=== PATIENT | male | born 1960 | race African-American/Black ===

== ENCOUNTER 2019-02-20 19:39 | Emergency (ER) | payer OTHER ==
[2019-02-20 21:05] LABS: Absolute Lymphocytes (CBC) 0.3 K/uL (0.7-4.9); Basophils % 0.4 % (0-1.3); Eosinophils % 0.2 % (0-4.4); Hematocrit 26.3 % (39.6-49.0); Lymphocytes % 5.4 % (15.3-44.8); MPV 7.2 fL (7.6-11.3); Monocytes % 9.5 % (3.3-12.3); RBC Red Blood Cell Count 2.84 M/uL (4.33-5.43)
[2019-02-20] MEDS ORDERED: NA CHLORIDE 0.9% 1,000 ML ONE ×2 (21:15→23:11)
[2019-02-20] MEDS ORDERED: TETANUS & DIPHTHERIA TOX,ADULT 0.5 ML VIAL ONE (21:15)
[2019-02-20 21:22] LABS: Protime INR 1.13
[2019-02-20 21:35] LABS: ALT/SGPT 14 U/L (12-78); AST/SGOT 9 U/L (15-37); Alkaline Phosphatase 51 U/L (45-117); BUN Blood Urea Nitrogen 103 mg/dL (7-18); Bicarbonate 15 mmol/L (21-32); Bilirubin Direct 0.1 mg/dL (0-0.2); Bilirubin Total 0.5 mg/dL (0.2-1.0); Creatine Phosphokinase 222 U/L (39-308); Glucose Level 98 mg/dL (74-106); Lipase 1091 U/L (73-393); Protein, Total 8.9 g/dL (6.4-8.2); Sodium Level 134 mmol/L (136-145); Troponin (Emerg Dept Use Only) < 0.02 ng/mL (0.0-0.045)
[2019-02-20 21:39] LABS: Potassium 2.9 mmol/L (3.5-5.1)
--- NOTE | 2019-02-20 22:09 | RAD REPORT ---
EXAM DESCRIPTION: Efren Single View02/20/2019 8:54 pm CLINICAL HISTORY: Chest pain COMPARISON: none FINDINGS: The lungs appear clear of acute infiltrate. The cardiac silhouette is moderately enlarged which may represent cardiomegaly/pericardial effusion
[2019-02-20] MEDS ORDERED: CEFTRIAXONE/SWI 1gm 1 GM/10 ML SYR ONE (22:16)
[2019-02-20 22:33] LABS: Blood Morphology Comment NOTED (NOT SEEN); Platelet Estimate ADEQ
[2019-02-20 22:34] LABS: Burr Cells 3+
[2019-02-20 22:40] LABS: Urine Blood 2+ (NEG); Urine Glucose NEGATIVE (NEG); Urine Protein 2+ (NEG); Urine Specific Gravity 1.015 (1.005-1.030); Urine pH 5.5 (5.0-7.0)
--- NOTE | 2019-02-20 22:40 | ER ---
Nurse's Notes [facility] Name: Speedy Paul Age: 58 yrs Sex: Male : 1960 Arrival Date: 02/20/2019 Time: 19:48 Bed 19 Private MD: Diagnosis: Multiple fractures of ribs;Fracture of sternum;Unspecified kidney failure Presentation: 02/20 20:20 Presenting complaint: stated by niece, patient is feeling weak, dizzy, having , rr5 cannot walk on his own, episode of disorientation. he has a history of fall busted his head and lips. the tube on his left kidney (inserted in [place]) supposed to drain the kidney stone but I think its clogged and infected. 20:20 Transition of care: patient was not received from another setting of care. Onset of rr5 symptoms was January 2019. Risk Assessment: Do you want to hurt yourself or someone else? Patient reports no desire to harm self or others. Initial Sepsis Screen: Does the patient meet any 2 criteria? No. Patient's initial sepsis screen is negative. Does the patient have a suspected source of infection? Yes: Other: suspected infection on the left flank kidney tube. Care prior to arrival: None. 20:20 Method Of Arrival: Wheelchair rr5 20:20 Acuity: CLYDE 3 rr5 Triage Assessment: 20:20 General: Appears in no apparent distress. uncomfortable, Behavior is calm, cooperative, rr5 appropriate for age. 20:20 General: Appears ill, unkempt, Behavior is. rr5 Historical: - Allergies: 20:20 No Known Allergies; rr5 - Home Meds: 20:20 None [Active]; rr5 - PMHx: 20:20 Thyroid problem; Kidney stones; rr5 - PSHx: 20:20 tube insertion in left kidney to drain stones; rr5 - Immunization history:: Adult Immunizations unknown. - Social history:: Smoking status: Patient/guardian denies using tobacco, Patient uses alcohol, occasionally. street drugs, marijuana. - Ebola Screening: : Patient negative for fever greater than or equal to 101.5 degrees Fahrenheit, and additional compatible Ebola Virus Disease symptoms Patient denies exposure to infectious person Patient denies travel to an Ebola-affected area in the 21 days before illness onset. Screenin:00 Abuse screen: Denies threats or abuse. Denies injuries from another. Nutritional rr5 screening: No deficits noted. Tuberculosis screening: No symptoms or risk factors identified. Fall Risk Fall in past 12 months (25 points). IV access (20 points). Ambulatory Aid- None/Bed Rest/Nurse Assist (0 pts). Gait- Weak (10 pts.). Mental Status- Oriented to own ability (0 pts). Total Ortiz Fall Scale indicates High Risk Score (45 or more points). Fall prevention measures have been instituted. Side Rails Up X 2 Placed Close to Nursing Station Frequent Obs/Assessments Occuring Family Present and informed to notify staff if the need to leave the bedside As available patient and family educated on Fall Prevention Program and Strategies. Assessment: 20:20 General: Appears uncomfortable, ill, unkempt, Behavior is calm, cooperative, rr5 appropriate for age. 20:20 Pain: Complains of pain in chest Pain does not radiate. Pain currently is 8 out of 10 rr5 on a pain scale. Quality of pain is described as aching, Pain began suddenly, Is intermittent. Neuro: Level of Consciousness is awake, alert, obeys commands, Oriented to person, place, time, situation, Appropriate for age Lace Machine Operator are equal bilaterally Weakness Gait is unsteady, Speech is slurred, Facial symmetry appears normal, Pupils are PERRLA, Reports dizziness, weakness as per niece episode of disorientation.. Cardiovascular: Reports chest pain, Capillary refill < 3 seconds Patient's skin is warm and dry. Respiratory: Reports pain with respiration Airway is patent Respiratory effort is even, unlabored, Respiratory pattern is regular, symmetrical. GI: No signs and/or symptoms were reported involving the gastrointestinal system. : Parent/caregiver report the patient having has a left nephrostomy tube connected to drain bag that looks clogged and looks infected. EENT: cut wound lower lip dry.. Derm: Skin dry Skin temperature is warm Wound noted forehead Wound is dry cut wound at frontal area. Musculoskeletal: Capillary refill < 3 seconds, Reports weakness in right leg and left leg. 21:40 Reassessment: Patient appears in no apparent distress at this time. Patient is alert, rr5 oriented x 3, equal unlabored respirations, skin warm/dry/pink. awaiting for results. family member at bedside chatting with the patient. 22:30 Reassessment: complaining of chest pain. ED provider aware awaiting for orders. pain rr5 score of 8/10. 22:46 Reassessment: call made to [facility] staff nurse Maisha accepted the ccase. patient rr5 will go to 10B 1035. 23:45 Reassessment: Patient appears in no apparent distress at this time. Patient is alert, rr5 oriented x 3, equal unlabored respirations, skin warm/dry/pink. endorsed to [facility] awake conscious and coherent not in distress. vitally stable, with IV cannula G22 at right AC intact, G22 at left forearm with ongoing NS at 125 ml/hr infusing well. with nephrostomy tube left connected to drain bag, with Medeiros catheter to urine bag draining yellow cloudy urine. Patient states symptoms have not improved. 02/21 00:00 Reassessment: Patient appears in no apparent distress at this time. Patient is alert, rr5 oriented x 3, equal unlabored respirations, skin warm/dry/pink. [facility] take back the patient in room. needs to changed their truck. 00:25 Reassessment: financial secretary called for the EMS service. [facility] will come instead of rr5 [facility]. 01:00 Reassessment: Patient appears in no apparent distress at this time. Patient is alert, rr5 oriented x 3, equal unlabored respirations, skin warm/dry/pink. endorsed to [facility]. fentanyl stat dose given prior to transfer. vitally stable, breathing spontaneously at room air. with IV cannula at right AC G22 intact, IV cannula G22 at left forearm intact with NS infusing well at 125ml/hr. with nephrostomy tube left kidney connected to drain bag no drain noted. with Medeiros catheter to urine bag draining cloudy yellow urine drained 280ml. Vital Signs: 02/20 20:20 BP 155 / 74; Pulse 69; Resp 20; Temp 98.5; Pulse Ox 97% ; Weight 89.36 kg; Height 6 ft. rr5 4 in. (193.04 cm); 21:10 BP 141 / 70; Pulse 73; Resp 18; Pulse Ox 98% on R/A; Pain 8/10; rr5 22:20 BP 143 / 76; Pulse 71; Resp 19; Temp 98.4; Pulse Ox 99% on R/A; rr5 23:00 BP 133 / 89; Pulse 88; Resp 15; Pulse Ox 99% on R/A; rr5 23:30 BP 110 / 85; Pulse 81; Resp 18; Temp 98.3; Pulse Ox 99% ; rr5 02/21 00:00 BP 125 / 70; Pulse 70; Resp 18; Temp 98.5; Pulse Ox 100% on R/A; rr5 01:00 BP 121 / 65; Pulse 79; Resp 16; Temp 98.5; Pulse Ox 100% ; rr5 02/20 20:20 Body Mass Index 23.98 (89.36 kg, 193.04 cm) rr5 Marcell Coma Score: 02/20 20:20 Eye Response: spontaneous(4). Verbal Response: oriented(5). Motor Response: obeys rr5 commands(6). Total: 15. ED Course: 19:48 Patient arrived in ED. es 20:05 Isael Treadwell MD is Attending Physician. gs 20:20 Arm band placed on. rr5 20:21 Juvenal Jones, YAN is Primary Nurse. rr5 20:31 Triage completed. rr5 20:35 Initial lab(s) drawn, by me, sent to lab. First set of blood cultures drawn by me. jp3 Inserted saline lock: 22 gauge in right antecubital area, using aseptic technique. Blood collected. Patient maintains SpO2 saturation greater than 95% on room air. 20:47 Placed in gown. Bed in low position. Call light in reach. Side rails up X 1. Side rails jp3 up X2. Warm blanket given. Pulse ox on. NIBP on. 20:54 Chest Single View XRAY In Process Unspecified. EDMS 21:07 CT Head C Spine In Process Unspecified. EDMS 21:07 CT Chest Wo Con In Process Unspecified. EDMS 21:10 Inserted saline lock: 22 gauge in left forearm, using aseptic technique. Blood rr5 collected. 21:15 Second set of blood cultures drawn by ED staff. jp3 21:39 Notified ED physician of a critical lab result(s). potassium of 2.9 and Creatinine of bb 7.24. Dr Treadwell notified. 22:20 Medeiros cath inserted, using sterile technique, 16 Fr., by me, balloon inflated, urine rr5 specimen collected. returned cloudy urine. Patient tolerated well. 23:42 CT Stone Protocol In Process Unspecified. EDMS 23:52 No provider procedures requiring assistance completed. Patient transferred, IV remains rr5 in place. intact, No redness/swelling at site. Pressure dressing applied. Administered Medications: 21:05 Drug: Tetanus-Diphtheria Toxoid Adult 0.5 ml {Extrusion Machine Operator: Kivun Hadash. Exp: rr5 11/10/2020. Lot #: [id number]. } Route: IM; Site: right deltoid; 22:05 Follow up: Response: No adverse reaction rr5 21:10 Drug: NS 0.9% 1000 ml Route: IV; Rate: 1 bolus; Site: left forearm; rr5 22:50 Follow up: Response: No adverse reaction; IV Status: Completed infusion; IV Intake: rr5 1000ml 22:00 Drug: Rocephin - (cefTRIAXone) 1 grams Route: IVPB; Infused Over: 30 mins; Site: left rr5 forearm; 22:30 Follow up: Response: No adverse reaction; IV Status: Completed infusion; IV Intake: [id number] 23:20 Drug: NS 0.9% 1000 ml Route: IV; Rate: 125 ml/hr; Site: left forearm; rr5 02/21 01:10 Follow up: Response: No adverse reaction; IV Status: Infusion continued upon transfer rr5 02/20 23:29 Drug: fentaNYL (PF) 50 mcg Route: IVP; Site: left forearm; rr5 02/21 00:30 Follow up: Response: No adverse reaction rr5 00:00 Drug: fentaNYL (PF) 50 mcg Route: IVP; Site: left forearm; rr5 01:04 Follow up: given at 0100 not 0000H. rr5 01:10 Follow up: Response: Other; medication administered at transfer. rr5 Point of Care Testing: Blood Glucose: 02/20 21:17 Blood Glucose: 108 mg/dL; rr5 Ranges: Intake: 22:30 IV: 50ml; Total: 50ml. rr5 22:50 IV: 1000ml; Total: 1050ml. rr5 Output: 02/21 01:00 Urine: 280ml (Medeiros); Total: 280ml. rr5 Outcome: 02/20 22:39 ER care complete, transfer ordered by MD. miller 23:52 Transferred by ground EMS to [facility], Transfer form rr5 completed. 23:52 Condition: stable 23:52 Instructed on no drinking with medication. 02/21 01:15 Patient left the ED. rr5 Signatures: Dispatcher [employer] Aparna Paredes Brenda, RN RN Isael Gross MD MD gs Pisarski, Jacob jp3 Juvenal Jones RN RN rr5
--- NOTE | 2019-02-20 22:40 | EDPHYS ---
Physician Documentation [facility] Name: Speedy Paul Age: 58 yrs Sex: Male : 1960 Arrival Date: 02/20/2019 Time: 19:48 Bed 19 Private MD: ED Physician Isael Treadwell HPI: 02/21 00:59 This 58 yrs old Black Male presents to ER via Wheelchair with complaints of General gs Weakness, Falling. 00:59 Details of fall: The patient fell from an upright position, while walking. Onset: The gs symptoms/episode began/occurred 5 day(s) ago. Associated injuries: The patient sustained injury to the head, contusion, laceration, pain. Severity of symptoms: At their worst the symptoms were moderate, in the emergency department the symptoms are unchanged. The patient has experienced similar episodes in the past, several times. Historical: - Allergies: 02/20 20:20 No Known Allergies; rr5 - Home Meds: 20:20 None [Active]; rr5 - PMHx: 20:20 Thyroid problem; Kidney stones; rr5 - PSHx: 20:20 tube insertion in left kidney to drain stones; rr5 - Immunization history:: Adult Immunizations unknown. - Social history:: Smoking status: Patient/guardian denies using tobacco, Patient uses alcohol, occasionally. street drugs, marijuana. - Ebola Screening: : Patient negative for fever greater than or equal to 101.5 degrees Fahrenheit, and additional compatible Ebola Virus Disease symptoms Patient denies exposure to infectious person Patient denies travel to an Ebola-affected area in the 21 days before illness onset. ROS: 02/21 00:59 All other systems are negative. gs Exam: 00:59 Head/Face: Normocephalic, atraumatic. Eyes: Pupils equal round and reactive to light, gs extra-ocular motions intact. Lids and lashes normal. Conjunctiva and sclera are non-icteric and not injected. Cornea within normal limits. Periorbital areas with no swelling, redness, or edema. ENT: Nares patent. No nasal discharge, no septal abnormalities noted. Tympanic membranes are normal and external auditory canals are clear. Oropharynx with no redness, swelling, or masses, exudates, or evidence of obstruction, uvula midline. Mucous membranes moist. Neck: Trachea midline, no thyromegaly or masses palpated, and no cervical lymphadenopathy. Supple, full range of motion without nuchal rigidity, or vertebral point tenderness. No Meningismus. 00:59 Cardiovascular: Regular rate and rhythm with a normal S1 and S2. No gallops, murmurs, or rubs. Normal PMI, no JVD. No pulse deficits. Respiratory: Lungs have equal breath sounds bilaterally, clear to auscultation and percussion. No rales, rhonchi or wheezes noted. No increased work of breathing, no retractions or nasal flaring. Abdomen/GI: Soft, non-tender, with normal bowel sounds. No distension or tympany. No guarding or rebound. No evidence of tenderness throughout. Back: No spinal tenderness. No costovertebral tenderness. Full range of motion. Skin: Warm, dry with normal turgor. Normal color with no rashes, no lesions, and no evidence of cellulitis. MS/ Extremity: Pulses equal, no cyanosis. Neurovascular intact. Full, normal range of motion. Neuro: Awake and alert, GCS 15, oriented to person, place, time, and situation. Cranial nerves II-XII grossly intact. Motor strength 5/5 in all extremities. Sensory grossly intact. Cerebellar exam normal. Normal gait. 00:59 Constitutional: The patient appears alert, awake. 00:59 Head/face: Noted is contusion, that is superficial, of the top of head, a laceration(s), that is superficial, 3 cm(s), of the top of head. 00:59 Chest/axilla: Palpation: tenderness, that is moderate, of the anterior aspect of right upper chest and anterior aspect of left upper chest. Vital Signs: 02/20 20:20 BP 155 / 74; Pulse 69; Resp 20; Temp 98.5; Pulse Ox 97% ; Weight 89.36 kg; Height 6 ft. rr5 4 in. (193.04 cm); 21:10 BP 141 / 70; Pulse 73; Resp 18; Pulse Ox 98% on R/A; Pain 8/10; rr5 22:20 BP 143 / 76; Pulse 71; Resp 19; Temp 98.4; Pulse Ox 99% on R/A; rr5 23:00 BP 133 / 89; Pulse 88; Resp 15; Pulse Ox 99% on R/A; rr5 23:30 BP 110 / 85; Pulse 81; Resp 18; Temp 98.3; Pulse Ox 99% ; rr5 02/21 00:00 BP 125 / 70; Pulse 70; Resp 18; Temp 98.5; Pulse Ox 100% on R/A; rr5 01:00 BP 121 / 65; Pulse 79; Resp 16; Temp 98.5; Pulse Ox 100% ; rr5 02/20 20:20 Body Mass Index 23.98 (89.36 kg, 193.04 cm) rr5 [place] Coma Score: 02/20 20:20 Eye Response: spontaneous(4). Verbal Response: oriented(5). Motor Response: obeys rr5 commands(6). Total: 15. MDM: 20:16 Patient medically screened. 02/21 00:59 Differential diagnosis: closed head injury, contusion, fracture. Data reviewed: vital gs signs, nurses notes, lab test result(s), EKG, radiologic studies. Counseling: I had a detailed discussion with the patient and/or guardian regarding: the historical points, exam findings, and any diagnostic results supporting the discharge/admit diagnosis, the need to transfer to another facility. Response to treatment: the patient's symptoms have mildly improved after treatment. 02/20 20:19 Order name: Basic Metabolic Panel 02/20 20:19 Order name: Blood Culture Adult (2) 02/20 20:19 Order name: CBC with Diff 02/20 20:19 Order name: CPK; Complete Time: 21:53 02/20 20:19 Order name: Lactate; Complete Time: 21:53 02/20 20:19 Order name: LFT's; Complete Time: 21:53 02/20 20:19 Order name: Lipase; Complete Time: 21:53 02/20 20:19 Order name: Procalcitonin; Complete Time: 21:53 02/20 20:19 Order name: Protime (+inr); Complete Time: 21:53 02/20 20:19 Order name: Troponin (emerg Dept Use Only); Complete Time: 21:53 02/20 20:19 Order name: Urine Microscopic Only 02/20 20:21 Order name: Basic Metabolic Panel; Complete Time: 21:53 [facility] 02/20 20:22 Order name: Blood Culture [facility] 02/20 21:10 Order name: Manual Differential [facility] 02/20 20:19 Order name: Chest Single View XRAY 02/20 20:19 Order name: Accucheck; Complete Time: 21:51 02/20 20:19 Order name: Cardiac monitoring; Complete Time: 21:52 02/20 20:19 Order name: EKG - Nurse/Tech; Complete Time: 21:52 02/20 20:19 Order name: IV Saline Lock - Large Bore; Complete Time: 21:52 02/20 20:19 Order name: CT Head C Spine 02/20 20:19 Order name: CT Chest Wo Con 02/20 21:42 Order name: CT Stone Protocol 02/20 22:32 Order name: Urine Dipstick--Ancillary (enter results) [facility] 02/20 23:11 Order name: Urine Culture [facility] 02/20 20:19 Order name: Labs collected and sent; Complete Time: 21:52 02/20 20:19 Order name: O2 Per Protocol; Complete Time: 21:52 02/20 20:19 Order name: O2 Sat Monitoring; Complete Time: 21:52 02/20 20:19 Order name: Urine Dipstick-Ancillary (obtain specimen); Complete Time: 22:25 02/20 21:43 Order name: Mala; Complete Time: 22:24 gs Administered Medications: 02/20 21:05 Drug: Tetanus-Diphtheria Toxoid Adult 0.5 ml {Linux Architect: [employer]. Exp: rr5 11/10/2020. Lot #: [id number]. } Route: IM; Site: right deltoid; 22:05 Follow up: Response: No adverse reaction rr5 21:10 Drug: NS 0.9% 1000 ml Route: IV; Rate: 1 bolus; Site: left forearm; rr5 22:50 Follow up: Response: No adverse reaction; IV Status: Completed infusion; IV Intake: rr5 1000ml 22:00 Drug: Rocephin - (cefTRIAXone) 1 grams Route: IVPB; Infused Over: 30 mins; Site: left rr5 forearm; 22:30 Follow up: Response: No adverse reaction; IV Status: Completed infusion; IV Intake: [id number] 23:20 Drug: NS 0.9% 1000 ml Route: IV; Rate: 125 ml/hr; Site: left forearm; rr5 02/21 01:10 Follow up: Response: No adverse reaction; IV Status: Infusion continued upon transfer rr5 02/20 23:29 Drug: fentaNYL (PF) 50 mcg Route: IVP; Site: left forearm; rr5 02/21 00:30 Follow up: Response: No adverse reaction rr5 00:00 Drug: fentaNYL (PF) 50 mcg Route: IVP; Site: left forearm; rr5 01:04 Follow up: given at 0100 not 0000H. rr5 01:10 Follow up: Response: Other; medication administered at transfer. rr5 Point of Care Testing: Blood Glucose: 02/20 21:17 Blood Glucose: 108 mg/dL; rr5 Ranges: Critical Glucose Levels:Adult <50 mg/dl or >400 mg/dl <40 mg/dl or >180 mg/dl Disposition: 02/20/19 22:39 Transfer ordered to [facility]. Diagnosis are Multiple fractures of ribs, Fracture of sternum, Unspecified kidney failure. - Reason for transfer: Higher level of care. - Accepting physician is sheppard. - Condition is Stable. - Problem is new. - Symptoms are unchanged. Signatures: Dispatcher [employer] Isael Harmon MD MD gs Roque, Raymond, RN RN rr5 Corrections: (The following items were deleted from the chart) 02/21 01:15 02/20 22:39 02/20/2019 22:39 Transfer ordered to [facility]. Diagnosis is Multiple rr5 fractures of ribs; Fracture of sternum; Unspecified kidney failure. Reason for transfer: Higher level of care. Accepting physician is sheppard. Condition is Stable. Problem is new. Symptoms are unchanged. gs
[2019-02-20 23:08] LABS: Urine Culture Reflex Order REFLEXED
[2019-02-20 23:09] LABS: Urine Bacteria 20-50 /HPF (NONE SEEN); Urine RBC <5 /HPF (NONE SEEN)
[2019-02-20] MEDS ORDERED: FENTANYL CITR 100 MCG/2 ML ONE (23:11)
[2019-02-21] MEDS ORDERED: FENTANYL CITR 100 MCG/2 ML ONE (01:16)
--- NOTE | 2019-02-22 08:56 | EKG ---
Test Date: 2019-02-20 Test Time: 21:22:18 Batch Blender: RR MEASUREMENT RESULTS: Intervals: Rate: 70 NV: QRSD: 108 QT: 428 QTc: 462 [place]: P: NV: QRS: 38 T: 90 INTERPRETIVE STATEMENTS: nl rhythm Low voltage QRS Lateral infarct, age undetermined Abnormal ECG No previous ECG available for comparison Electronically Signed On 02-22-19 08:53:42 CDT by Gurvinder Mendoza
--- NOTE | 2019-02-22 09:31 | RAD REPORT ---
EXAM DESCRIPTION: CT - Thorax Wo Con - 02/21/2019 2:31 am CLINICAL HISTORY: Trauma. Pain. TECHNIQUE: 5 mm axial images of the thorax were obtained without intravenous contrast. Coronal and s agittal reformatted images were obtained. DOSE OPTIMIZATION: This facility uses dose optimization techniques as appropriate to perform exams, including at least one of the following techniques: 1. Automated exposure control. 2. Adjustment of the mA and/or kV according to patient size (this includes techniques or standardized protocols for targeted exams where dose is matched to the indication/reason for exam, i.e. extremiti es or head). 3. Use of iterative reconstructive technique. INTRAVENOUS CONTRAST: None. COMPARISON: None. FINDINGS: Lung Thakkar: Normal. Mediastinal Structures: There is a moderate-sized pericardial effusion. There is mild atherosclerotic disease about the thoracic aorta. Pleural Space: Normal. Axillae: Normal. Upper Abdomen: No significant abnormality. Bony Structures: There are fractures identified involving the anterior aspects of the right fourth, fifth, sixth, and seventh ribs. There is a nondisplaced fracture involving the body left of midline. This is best identified on coron al sequence. IMPRESSION: 1. Fractures of the anterior aspects of the right 4 through seventh ribs and the superio r aspect of the sternal body left midline. 2. Moderate-sized pericardial effusion. PQRS: [id number] Electronically signed by: Clyde Giles MD 02/20/2019 9:19 PM CDT Due to temporary technical issues with the PACS/Fluency reporting system, reports are being signed by the in house radiologist as a courtesy to ensure prompt reporting. The interpreting radiologist is f ully responsible for the content of the report.
--- NOTE | 2019-02-22 09:33 | RAD REPORT ---
EXAM DESCRIPTION: CT - Head C Spine Mpr Wo Con - 02/21/2019 2:[address] CLINICAL HISTORY: 58 years Male, trauma;Weakness;Pain TECHNIQUE: 5 mm axial images were obtained along with 3 mm reformatted coronal and sagittal images. This exam was performed according to our departmental dose-optimization program, which includes autom ated exposure control, adjustment of the mA and/or kV according to patient size and/or use of iterati ve reconstruction technique. COMPARISON: None. FINDINGS: No acute abnormal extracerebral fluid collections are demonstrated. The cortical sulci, ventricles, and cisterns are within normal limits. There are no areas of altered attenuation identified to suggest acute hemorrhage, infarction, or mass lesion. The visualized portions of the paranasal sinuses and mastoid air cells are clear. There is moderately severe scalp injury along the external convexity of the right frontal bone superi christie and anteriorly. There are no radiopaque foreign bodies identified. There is no associated fracture. IMPRESSION: 1. No acute intracranial abnormality. 2. Moderately severe scalp injury. CT CERVICAL SPINE CLINICAL HISTORY: Trauma with pain. TECHNIQUE: CT scan of the cervical spine without contrast. 2.0 mm axial images were obtained from th e skull base to the T2 vertebral body level. 2.0 mm reformatted coronal and sagittal images were obta ined. DOSE OPTIMIZATION: This facility uses dose optimization techniques as appropriate to perform exams, including at least one of the following techniques: 1. Automated exposure control. 2. Adjustment of the mA and/or kV according to patient size (this includes techniques or standardized protocols for targeted exams where dose is matched to the indication/reason for exam, i.e. extremiti es or head). 3. Use of iterative reconstructive technique. COMPARISON: None. FINDINGS: BONY STRUCTURES: C1: No fracture or subluxation. C2: There is no fracture or subluxation. C3: There is no fracture or subluxation. There is mild spondylosis anteriorly at C3-C4. C4: No fracture or subluxation. There is moderately severe spondylosis anteriorly at C4-C5. C5: No fracture or subluxation. There is moderately severe degenerative disc disease with moderately severe spondylosis anteriorly at C5-C6. C6: No fracture or subluxation. C7: No fracture or subluxation. T1: No fracture or subluxation. Mild spondylosis anteriorly at T1-T2. T2: No fracture or subluxation. SOFT TISSUES: Unremarkable. LUNG APICES: Unremarkable. IMPRESSION: 1. No fracture. 2. Degenerative changes as described above. Electronically signed by: Clyde Giles MD 02/20/2019 9:29 PM CDT Due to temporary technical issues with the PACS/Fluency reporting system, reports are being signed by the in house radiologist as a courtesy to ensure prompt reporting. The interpreting radiologist is f ully responsible for the content of the report.
--- NOTE | 2019-02-22 09:59 | RAD REPORT ---
EXAM DESCRIPTION: CT - Stone Protocol - 02/21/2019 2:26 am CLINICAL HISTORY: ABD PAIN COMPARISON: None. TECHNIQUE: CT ABDOMEN PELVIS WITHOUT IV CONTRAST on 02/20/2019 9:42 PM CDT This exam was performed according to our departmental dose-optimization program, which includes autom ated exposure control, adjustment of the mA and/or kV according to patient size and/or use of iterati ve reconstruction technique. FINDINGS: The heart is mildly enlarged with a small pericardial effusion. Lung bases are clear. Abdomen: The liver is normal in appearance. There is no biliary dilatation. Gallbladder is decompress ed. The pancreas and spleen are normal in appearance. The adrenal glands and right kidney are normal. Left kidney collecting system is essentially completely filled with dense calculi, with the largest component measuring at least 2.9 cm. There is a percutaneous nephrostomy in place. There is mild if a ny hydronephrosis. Abdominal aorta is normal in course and caliber without aneurysm. There is no free air. There is no r etroperitoneal adenopathy. Pelvis: There is fluid throughout the colon. Urinary bladder is moderately thickened but decompressed with a Medeiros catheter within. There is no free fluid. Appendix is normal. There is edema throughout the scrotum. Skeleton: There are no acute osseous findings. No suspicious bony lesions. 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 Electronically signed by: Torrey Grier MD 02/20/2019 11:46 PM CDT Due to temporary technical issues with the PACS/Fluency reporting system, reports are being signed by the in house radiologist as a courtesy to ensure prompt reporting. The interpreting radiologist is f ully responsible for the content of the report.
== END 2019-02-21 01:15 | disposition short-term general hospital (02) ==
LOC: ER 19:39
DX: S22.20XA Unspecified fracture of sternum, initial encounter for closed fracture (principal); S22.41XA Multiple fractures of ribs, right side, initial encounter for closed fracture; W19.XXXA Unspecified fall, initial encounter; Y93.01 Activity, walking, marching and hiking; Y92.9 Unspecified place or not applicable; Z23 Encounter for immunization
CPT/HCPCS: 36415; 51702; 70450; 71045; 71250; 72125; 74176; 76377; 80048; 80076; 81003; 81015; 82550; 82962; 83605; 83690; 84145; 84484; 85025; 85610; 87040; 87077; 87086; 87088; 87186; 87205; 90471; 90714; 93005; 96361; 96365; 96375; 99285; J0696; J3010; J7030